=== PATIENT | male | born 1935 | race Asian ===

== ENCOUNTER 2017-01-15 18:59 | Inpatient (IN) | payer OTHER ==
[~2017-01-15] VITALS: Ht 160 cm; Wt 61.2 kg
[2017-01-15 20:00] VITALS: BP 133/64
[2017-01-15] MEDS ORDERED: Solu-MEDROL 125mg Inj IVP ONE (20:30)
[2017-01-15] MEDS ORDERED: Azithromycin 500 MG in NS 275 ML IV ONE (20:30)
[2017-01-15] MEDS: Ipratropium 0.02% Inh Soln 2.5ml UD HHN SCH ×3 (20:51→21:39)
[2017-01-15] MEDS: Albuterol ud Inhalation HHN SCH ×3 (20:51→21:39)
--- NOTE | 2017-01-15 20:54 | Emergency Room Report ---
History of Present Illness General Chief Complaint: Dyspnea/Respdistress Source: Patient Present Illness HPI 81 YOM with COPD with worsening SOB last day, no improvement with home nebs. Not on chronic steroids. On ProAir, Atrovent. No recent fever/chills, increase sputum/cough production. No recent hospitalizations. Allergies: Coded Allergies: PARVIN INHIBITORS (Verified Allergy, Mild, 09/13/09) Patient History Past Medical History: HTN, COPD Past Surgical History: none Pertinent Family History: none Social History: Denies: alcohol use, drug use, smoking Immunizations: UTD Reviewed Nursing Documentation: PMH: Agreed, PSxH: Agreed Nursing Documentation-PMH Hx COPD: Yes Review of Systems All Other Systems: negative except mentioned in HPI Physical Exam Vital Signs Date Time Temp Pulse Resp B/P Pulse Ox O2 Delivery O2 Flow Rate FiO2 01/15/17 18:54 100.9 111 24 186/106 99 Room Air Sp02 EP Interpretation: reviewed, abnormal General Appearance: normal inspection, well appearing, no apparent distress, alert, GCS 15, non-toxic Head: normocephalic, atraumatic Eyes: bilateral eye EOMI, bilateral eye PERRL ENT: normal ENT inspection, hearing grossly normal, normal voice Neck: normal inspection, full range of motion, supple, no bony tend Respiratory: normal inspection, lungs clear, normal breath sounds, no respiratory distress, no retraction, no wheezing, decreased breath sounds, accessory muscle use, speaking full sentences, wheezing, other - Accessory muscle use Cardiovascular #1: regular rate, rhythm, no edema Gastrointestinal: normal inspection, normal bowel sounds, non tender, soft, no guarding, no hernia Genitourinary: no CVA tenderness Musculoskeletal: normal inspection, back normal, normal range of motion, Mony' s Sign negative Neurologic: normal inspection, alert, oriented x3, 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 I attest that this information is true, accurate and complete to the best of my knowledge. I understand that any falsification, omission, or concealment of material fact may subject me to administrative, civil, or criminal liability. This patient warrants hospital admission for extreme of age and has a condition that cannot be treated as outpatient. Diagnostic Impression: Primary Impression: Dyspnea Qualified Codes: R06.00 - Dyspnea, unspecified Additional Impression: COPD exacerbation ER Course 81 YO M with fever, COPD exac. Low grade fever. Otherwise stable VS. CXR: No obvious PNA Labs: 18k. Given Azitrho/Rocephin, Tylenol Blood Cx pending Feels better after duonebs. Endorsed to Dr Velasco at 1002pm for tele admission Chest X-Ray Diagnostic Results EP Interpretation: Yes Findings: no consolidation, no effusion, no pneumothorax, no acute cardiopulmonary disease Number of Views: 1 Last Vital Signs Date Time Temp Pulse Resp B/P Pulse Ox O2 Delivery O2 Flow Rate FiO2 01/15/17 18:54 100.9 111 24 186/106 99 Room Air Status: unchanged Disposition: ADMITTED INPATIENT Condition: Serious [facility] ABRAHAM BROWN M.D. Jan 15, 2017 20:54
[2017-01-15 20:58] LABS: MEAN CORPUSCULAR VOLUME 96 FL (80-99); RED BLOOD COUNT 5.13 M/UL (4.70-6.10); WHITE BLOOD COUNT 18.8 K/UL (4.8-10.8)
[2017-01-15 20:59] LABS: MEAN CORPUSCULAR HGB CONC 32.6 G/DL (32.0-36.0); MEAN PLATELET VOLUME 6.1 FL (6.5-10.1); PLATELET COUNT 194 K/UL (150-450); RED CELL DISTRIBUTION WIDTH 14.6 % (11.6-14.8)
[2017-01-15] MEDS ORDERED: Azithromycin Inj IV ONE (21:09)
[2017-01-15 21:10] LABS: TROPONIN I < 0.30 ng/mL (<=0.30)
[2017-01-15 21:16] LABS: CKMB 6.6 ng/mL (< 6.7)
[2017-01-15 21:25] LABS: ALANINE AMINOTRANSFERASE 37 U/L (3-41); ALBUMIN/GLOBULIN RATIO 1.3 (1.0-2.7); ANION GAP 17 (5-15); ASPARTATE AMINO TRANSFERASE 29 U/L (5-40); CALCIUM 9.3 mg/dL (8.6-10.2); CARBON DIOXIDE 27 mEQ/L (20-30); CHLORIDE 94 mEQ/L (98-107); CREATININE 0.9 mg/dL (0.7-1.2); HEMOLYSIS 12; POTASSIUM 3.8 mEQ/L (3.4-4.9); SODIUM 138 mEQ/L (135-145); TOTAL PROTEIN 7.6 g/dL (6.6-8.7)
[2017-01-15 21:37] LABS: BAND NEUTROPHILS % (MANUAL) 12 % (0-8); LYMPHOCYTES % (MANUAL) 1 % (20-45); NEUTROPHILS % (MANUAL) 86 % (45-75); TOTAL CELLS COUNTED 100
[2017-01-15 21:38] LABS: BASOPHILS % (MANUAL) 0 % (0-2); EOSINOPHILS % (MANUAL) 0 % (0-3); PLATELET ESTIMATE ADEQUATE
[2017-01-15 21:44] LABS: PLATELET MORPHOLOGY NORMAL
[2017-01-15] MEDS ORDERED: cefTRIAXone 1 GM in NS 55 ML IVPB ONE (21:45)
[2017-01-15 22:30] VITALS: BP 111/57
[2017-01-16] VITALS: BP 108/67
[2017-01-16 04:00] VITALS: BP 107/67
[2017-01-16] MEDS: DuoNeb 0.5-3(2.5)mg/3ml neb HHN SCH ×4 (07:51→19:27)
[2017-01-16] MEDS: Solu-MEDROL 40mg Inj IVP SCH ×2 (08:28→20:52)
[2017-01-16 08:31] VITALS: BP 111/73
[2017-01-16 11:42] VITALS: BP 121/78
--- NOTE | 2017-01-16 13:31 | Diagnostic Imaging Report ---
Indication: SOB Technique: One view of the chest Comparison: None Findings: There is Some atelectasis at the left lateral lung base. There may be a small left pleural effusion. There is minimal right lateral basilar atelectasis. Lungs and pleural spaces otherwise clear. Heart size is normal. Impression: Minimal bilateral basilar atelectatic changes and possible minimal left pleural effusion
[2017-01-16 16:20] VITALS: BP 124/81
--- NOTE | 2017-01-16 19:10 | History & Physical ---
History and Physical History & Physicial dict RAMANATHINARDA Jan 16, 2017 19:09
[2017-01-16 20:00] VITALS: BP 124/71
[2017-01-16] MEDS ORDERED: cefTRIAXone 1 GM in D5W 55 ML IVPB SCH (21:00)
[2017-01-16] MEDS ORDERED: Azithromycin 250mg tab ORAL SCH (21:00)
[2017-01-16 21:21] LABS: APPEARANCE,URINE CLEAR; KETONES,URINE NEGATIVE (NEGATIVE); LEUKOCYTE ESTERASE ,URINE NEGATIVE (NEGATIVE); NITRITE,URINE NEGATIVE (NEGATIVE); PH,URINE 5 (4.5-8.0); PROTEIN,URINE 2+ (NEGATIVE); UROBILINOGEN,URINE NORMAL MG/DL (0.0-1.0)
[2017-01-16 21:53] LABS: BACTERIA,URINE MODERATE /HPF
[2017-01-17] VITALS: BP 116/67
--- NOTE | 2017-01-17 02:18 | History and Physical Report ---
DATE OF ADMISSION: 01/15/2017 HISTORY OF PRESENT ILLNESS: The patient is a very pleasant 81-year-old man who comes to the hospital because of shortness of breath for one day. He has severe emphysema, and has been seen and treated in urgent care in the past several weeks. He states that he has home oxygen and a home nebulizer, but he does not need it much. He came in severely short of breath and came to the emergency department. He was treated with bronchodilators, steroids, and antibiotics. His white count is elevated. Admission was arranged. Now he is anxious to leave the hospital. He states he is feeling better. ALLERGIES: PARVIN inhibitor, grass, and pollen. PAST MEDICAL HISTORY: 1. BPH. 2. Rhinitis. 3. Bronchiectasis. 4. Chronic obstructive pulmonary disease. 5. Fatty liver. 6. Gout. 7. Hepatitis. 8. Past heavy smoker. 9. Hypertension. 10. Macular degeneration. 11. Microscopic hematuria. 12. Osteoarthritis. 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 14. Tubular adenoma. SOCIAL HISTORY: He lives with his . He does not smoke any longer as noted. MEDICATIONS: Include, 1. Allopurinol. 2. Proscar. 3. Norvasc. 4. Advair. 5. Claritin. 6. Flonase. 7. Astelin. 8. ProAir. 9. EpiPen. 10. Flomax. REVIEW OF SYSTEMS: Otherwise unremarkable. He denies hemoptysis or chest pain. He has no cardiac problems. He has no ankle edema. He eats well. He does not have difficulty urinating. PHYSICAL EXAMINATION: GENERAL: The patient is alert and responds appropriately. He is standing up at the bedside with mild dyspnea. VITAL SIGNS: The blood pressure and pulse are normal. Respirations are mildly elevated at 28. His temperature was elevated on admission at 100.9 degrees, but has improved at this time. SKIN: Warm and dry. HEENT: The head is normocephalic. NECK: No jugular venous distention. CHEST: Decreased air entry with increased AP diameter. CARDIAC: Rhythm is regular. ABDOMEN: Soft and nontender. EXTREMITIES: No edema. DIAGNOSTIC DATA: Chest x-ray is clear. I note that there is no indication of situs inversus on the x-ray. LABORATORY DATA: Showed white count is 18,800; hemoglobin is 15.9; and platelets are normal. There is a left shift. Chemistry shows blood sugar 160. Troponin is negative. Electrolytes are otherwise normal. Renal function is normal. Urinalysis is pending. IMPRESSION: 1. Exacerbation of chronic obstructive pulmonary disease. 2. Fever and leukocytosis, possible influenza or early pneumonia, possible urinary tract infection. Urinalysis pending. 3. Hypertension. 4. Benign prostatic hypertrophy. 5. Bronchiectasis. PLAN: The patient will continue on steroids, antibiotics, bronchodilators, and oxygen. I advised him that if he wants to leave this evening, he will have to go against my advice. I anticipate 1 to 2 days more in the hospital. Abraham Velasco M.D. DR: MARJAN JOB#: [id number] CC: Abraham Velasco M.D.; Fax#: [phone]
[2017-01-17 04:02] LABS: MEAN CORPUSCULAR HEMOGLOBIN 30.8 PG (27.0-31.0); MEAN CORPUSCULAR HGB CONC 32.6 G/DL (32.0-36.0); MEAN CORPUSCULAR VOLUME 94 FL (80-99); PLATELET COUNT 181 K/UL (150-450); RED BLOOD COUNT 4.28 M/UL (4.70-6.10); RED CELL DISTRIBUTION WIDTH 14.2 % (11.6-14.8); WHITE BLOOD COUNT 19.5 K/UL (4.8-10.8)
[2017-01-17 04:15] VITALS: BP 113/75
[2017-01-17 04:29] LABS: ALANINE AMINOTRANSFERASE 24 U/L (3-41); ALBUMIN/GLOBULIN RATIO 1.1 (1.0-2.7); ANION GAP 12 (5-15); ASPARTATE AMINO TRANSFERASE 18 U/L (5-40); CALCIUM 9.2 mg/dL (8.6-10.2); CARBON DIOXIDE 27 mEQ/L (20-30); CHLORIDE 103 mEQ/L (98-107); CREATININE 0.9 mg/dL (0.7-1.2); HEMOLYSIS 1; POTASSIUM 4.5 mEQ/L (3.4-4.9); SODIUM 142 mEQ/L (135-145); TOTAL PROTEIN 6.1 g/dL (6.6-8.7)
[2017-01-17 07:11] LABS: BAND NEUTROPHILS % (MANUAL) 0 % (0-8); BASOPHILS % (MANUAL) 0 % (0-2); EOSINOPHILS % (MANUAL) 0 % (0-3); LYMPHOCYTES % (MANUAL) 5 % (20-45); NEUTROPHILS % (MANUAL) 94 % (45-75); PLATELET ESTIMATE ADEQUATE; PLATELET MORPHOLOGY NORMAL; TOTAL CELLS COUNTED 100
[2017-01-17] MEDS: DuoNeb 0.5-3(2.5)mg/3ml neb HHN SCH ×3 (07:25→14:52)
[2017-01-17 08:35] VITALS: BP 116/77
[2017-01-17] MEDS: Solu-MEDROL 40mg Inj IVP SCH (09:27)
[2017-01-17 11:34] VITALS: BP 118/72
--- NOTE | 2017-01-17 15:12 | Cardiology Report ---
APPROVED REPORT EKG Measurement Heart [id number] arm lead reversal Sinus tachycardia Septal infarct, age undetermined Inferior infarct, age undetermined Abnormal ECG
[2017-01-17 16:00] VITALS: BP 131/76
[2017-01-17] MEDS ORDERED: SYMBICORT 16010.2 G1 IH (16:32)
[2017-01-17] MEDS ORDERED: MEDROL4 M1 PO (16:32)
[2017-01-17] MEDS ORDERED: ZITHROMAX250 MG ORAL (16:32)
--- NOTE | 2017-01-17 16:34 | Discharge Summary ---
Discharge Summary Hospital Course Date of Admission Jan 15, 2017 at 21:46 Date of Discharge 01/17/17 Admitting Diagnosis COPD exacerbation HPI Kwesi Salgado is a 81 year old male who was admitted on Jan 15, 2017 at 21:46 for Chronic Obstructive Pulmonary Disease Consultations no Procedures no Hospital Course improved w abx, steroids, hhn no infection identified Discharge Medications New Medications: Budesonide/Formoterol Fumarate (Symbicort 160-4.5 Mcg Inhaler) 10.2 Gm Hfa.aer.ad 2 PUFF IH BID, #1 INH 0 Refills Methylprednisolone (Medrol) 4 Mg Tab.ds.pk 4 MG PO BID, #20 PACK Azithromycin* (Zithromax*) 250 Mg Tablet 250 MG ORAL DAILY@2100 for 5 Days, #5 TAB Discharge Discharge Disposition Patient was discharged to home Discharge Diagnoses: (1) COPD exacerbation NARDA VALIENTE Jan 17, 2017 16:34
== END 2017-01-17 18:36 | disposition home or self-care (01) | DRG 190 ==
LOC: EDBD 18:59 → EMR 20:33 → 2E 21:46 → EDBEDREQ 22:36
DX: J44.1 Chronic obstructive pulmonary disease with (acute) exacerbation (principal); J18.9 Pneumonia, unspecified organism; N39.0 Urinary tract infection, site not specified; I10 Essential (primary) hypertension; N40.0 Benign prostatic hyperplasia without lower urinary tract symptoms; Z88.8 Allergy status to other drugs, medicaments and biological substances; M19.90 Unspecified osteoarthritis, unspecified site; M10.9 Gout, unspecified; Z87.891 Personal history of nicotine dependence
CPT/HCPCS: 36415; 71010; 80053; 81001; 82550; 82553; 84484; 85007; 85025; 86710; 87086; 93005; 94640; 94664; 94760; J7620

== ENCOUNTER 2017-07-03 12:52 | Outpatient (RCR) | payer OTHER ==
[~2017-07-03 12:52] MED LIST: MEDROL4 M1 PO; SYMBICORT 16010.2 G1 IH; ZITHROMAX250 MG ORAL
== END 2017-07-04 | disposition home or self-care (01) ==
LOC: PTY 12:52
PROVIDERS: ATTEND Internal Medicine
DX: M50.30 Other cervical disc degeneration, unspecified cervical region (principal)
CPT/HCPCS: 97110; 97140; 97162; 97535; G0283

== ENCOUNTER 2017-07-10 18:43 | Emergency (ER) | payer OTHER ==
[~2017-07-10] VITALS: Ht 157.5 cm; Wt 65.8 kg
[2017-07-10 19:00] VITALS: BP 157/84
[2017-07-10] MEDS ORDERED: ALLOPURINOL100 M1 ORAL (19:02)
[2017-07-10] MEDS ORDERED: PROAIR HFA8.5 GM INH (19:02)
[2017-07-10] MEDS ORDERED: IPRATROPIU0.2 MG/1 M HHN (19:02)
[2017-07-10] MEDS ORDERED: STIOLTO RESPIMAT4 GM IH (19:02)
[2017-07-10] MEDS ORDERED: FINASTERIDE5 MG ORAL (19:02)
[2017-07-10] MEDS ORDERED: TAMSULOSIN HCL0.4 MG ORAL (19:02)
[2017-07-10 19:20] VITALS: BP 157/84
--- NOTE | 2017-07-10 19:41 | Emergency Room Report ---
History of Present Illness General Chief Complaint: Dyspnea/Respdistress Source: Patient, Medical Record Present Illness HPI This patient has a history of severe COPD. He is on home oxygen. He states that for the past week he has had worsening dyspnea. He states that he is also had cough. He states he can only walk a few feet and becomes severely short of breath. He states his symptoms are severe. He also has had congestion and mucus. 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 He denies fever or chills. Denies nausea or vomiting. Denies abdominal pain. He has no other complaints. Allergies: Coded Allergies: PARVIN INHIBITORS (Verified Allergy, Mild, 09/13/09) GRASS POLLEN (Unverified Allergy, Unknown, 01/16/17) NUT - UNSPECIFIED (Unverified Allergy, Unknown, 01/16/17) WHEAT (Unverified Allergy, Unknown, 01/16/17) Patient History Past Medical History: see triage record, COPD Social History: Denies: smoking, alcohol use, drug use Reviewed Nursing Documentation: PMH: Agreed, PSxH: Agreed Nursing Documentation-PMH Hx COPD: Yes - Emphysema Review of Systems All Other Systems: negative except mentioned in HPI Physical Exam Vital Signs Date Time Temp Pulse Resp B/P (MAP) Pulse Ox O2 Delivery O2 Flow Rate FiO2 07/10/17 18:50 99.0 97 25 157/109 93 Room Air 2.0 Sp02 EP Interpretation: reviewed, abnormal General Appearance: no apparent distress, alert, GCS 15, non-toxic Head: normocephalic, atraumatic Eyes: bilateral eye normal inspection, bilateral eye PERRL ENT: hearing grossly normal, normal pharynx, no angioedema, normal voice Neck: full range of motion, supple/symm/no masses Respiratory: chest non-tender, lungs clear, normal breath sounds, no respiratory distress, no retraction, speaking full sentences, expiration - prolonged Cardiovascular #1: regular rate, rhythm, no edema Gastrointestinal: normal bowel sounds, non tender, soft, non-distended, no guarding, no rebound Rectal: deferred Musculoskeletal: back normal, gait/station normal, normal range of motion, non- tender Neurologic: alert, oriented x3, responsive, motor strength/tone normal, sensory intact, speech normal Psychiatric: judgement/insight normal, memory normal, mood/affect normal, no suicidal/homicidal ideation Skin: normal color, no rash, warm/dry, well hydrated Medical Decision Making Diagnostic Impression: Primary Impression: COPD exacerbation ER Course This patient has a clinical presentation consistent with COPD exacerbation. Patient has a history of severe COPD and has prolonged expiration and pursed lip breathing on physical exam. The patient was given albuterol and Atrovent nebulizer treatments. The patient was also given prednisone orally. The patient had significant improvement in subjective shortness of breath. The patient's lung exam improved significantly. I will also treat the patient with a course of antibiotics as this has been shown to improve the course of an COPD exacerbation. The patient was offered admission to the hospital. However he adamantly declined. The patient states he does not want to be in hospitals. He was offered to return if he changes his mind. The patient was given close return precautions and followup instructions. Laboratory Tests Test 07/10/17 20:00 White Blood Count 10.6 K/UL (4.8-10.8) Red Blood Count 4.17 M/UL (4.70-6.10) L Hemoglobin 13.6 G/DL (14.2-18.0) L Hematocrit 39.8 % (42.0-52.0) L Mean Corpuscular Volume 96 FL (80-99) Mean Corpuscular Hemoglobin 32.6 PG (27.0-31.0) H Mean Corpuscular Hemoglobin Concent 34.1 G/DL (32.0-36.0) Red Cell Distribution Width 13.0 % (11.6-14.8) Platelet Count 213 K/UL (150-450) Mean Platelet Volume 6.2 FL (6.5-10.1) L Neutrophils (%) (Auto) 83.4 % (45.0-75.0) H Lymphocytes (%) (Auto) 6.7 % (20.0-45.0) L Monocytes (%) (Auto) 8.1 % (1.0-10.0) Eosinophils (%) (Auto) 0.5 % (0.0-3.0) Basophils (%) (Auto) 1.4 % (0.0-2.0) Prothrombin Time 10.0 SEC (9.30-11.50) Prothrombin Time INR 1.0 (0.9-1.1) PTT 27 SEC (23-33) Sodium Level 140 mEQ/L (135-145) Potassium Level 4.1 mEQ/L (3.4-4.9) Chloride Level 100 mEQ/L (98-107) Carbon Dioxide Level 29 mEQ/L (20-30) Anion Gap 11 (5-15) Blood Urea Nitrogen 14 mg/dL (7-23) Creatinine 0.8 mg/dL (0.7-1.2) Estimate Glomerular Filtration Rate mL/min (>60) Glucose Level 125 mg/dL (74-106) H Calcium Level 9.5 mg/dL (8.6-10.2) Total Bilirubin 0.6 mg/dL (0.0-1.2) Aspartate Amino Transferase (AST) 68 U/L (5-40) H Alanine Aminotransferase (ALT) 148 U/L (3-41) H Alkaline Phosphatase 121 U/L (40-129) Total Creatine Kinase 295 U/L (38-174) H Creatine Kinase MB 11.8 ng/mL (< 6.7) H Creatine Kinase MB Relative Index 4.0 Troponin I < 0.30 ng/mL (<=0.30) Pro-B-Type Natriuretic Peptide 81 pg/mL (0-450) Total Protein 7.6 g/dL (6.6-8.7) Albumin 3.8 g/dL (3.5-5.2) Globulin 3.8 g/dL Albumin/Globulin Ratio 1.0 (1.0-2.7) EKG Diagnostic Results Rate: normal Rhythm: NSR ST Segments: no acute changes Rhythm Strip Diag. Results EP Interpretation: yes Rate: 80's Rhythm: NSR, no PVC's, no ectopy Chest X-Ray Diagnostic Results Chest X-Ray Diagnostic Results : Chest X-Ray Ordered: Yes # of Views/Limited/Complete: 1 View Indication: Shortness of Breath EP Interpretation: Yes Interpretation: no consolidation, no effusion, no pneumothorax, no acute cardiopulmonary disease Impression: No acute disease Last Vital Signs Date Time Temp Pulse Resp B/P (MAP) Pulse Ox O2 Delivery O2 Flow Rate FiO2 07/10/17 19:20 99.0 86 22 157/84 97 Nasal Cannula 2.0 Disposition: HOME, SELF-CARE Condition: Improved Referrals: BARRIE SOLOMON MD (PCP) Patient Instructions: Chronic Obstructive Pulmonary Disease Exacerbation LEO GRIFFITH D.O. Jul 10, 2017 19:41
[2017-07-10] MEDS ORDERED: Azithromycin 500 MG in NS 275 ML IV ONE (19:45)
[2017-07-10] MEDS ORDERED: PredniSONE 20mg tab ORAL ONE (19:45)
[2017-07-10] MEDS ORDERED: Ipratropium 0.02% Inh Soln 2.5ml UD HHN ONE (19:45)
[2017-07-10] MEDS ORDERED: Albuterol ud Inhalation HHN ONE (19:45)
[2017-07-10] MEDS ORDERED: Azithromycin 500mg Inj IV ONE (20:05)
[2017-07-10 20:07] LABS: BASOPHILS % (AUTO) 1.4 % (0.0-2.0); EOSINOPHILS % (AUTO) 0.5 % (0.0-3.0); LYMPHOCYTES % (AUTO) 6.7 % (20.0-45.0); MEAN CORPUSCULAR HEMOGLOBIN 32.6 PG (27.0-31.0); MEAN CORPUSCULAR HGB CONC 34.1 G/DL (32.0-36.0); MEAN CORPUSCULAR VOLUME 96 FL (80-99); MEAN PLATELET VOLUME 6.2 FL (6.5-10.1); MONOCYTES % (AUTO) 8.1 % (1.0-10.0); NEUTROPHILS % (AUTO) 83.4 % (45.0-75.0); PLATELET COUNT 213 K/UL (150-450); RED BLOOD COUNT 4.17 M/UL (4.70-6.10); WHITE BLOOD COUNT 10.6 K/UL (4.8-10.8)
[2017-07-10 20:32] LABS: TROPONIN I < 0.30 ng/mL (<=0.30)
[2017-07-10 20:35] LABS: ALANINE AMINOTRANSFERASE 148 U/L (3-41); ANION GAP 11 (5-15); ASPARTATE AMINO TRANSFERASE 68 U/L (5-40); CALCIUM 9.5 mg/dL (8.6-10.2); CARBON DIOXIDE 29 mEQ/L (20-30); CHLORIDE 100 mEQ/L (98-107); CREATININE 0.8 mg/dL (0.7-1.2); HEMOLYSIS 1; POTASSIUM 4.1 mEQ/L (3.4-4.9); SODIUM 140 mEQ/L (135-145); TOTAL PROTEIN 7.6 g/dL (6.6-8.7)
[2017-07-10 20:46] LABS: CKMB 11.8 ng/mL (< 6.7)
[2017-07-10] MEDS ORDERED: PSEUDOEPHEDRINE30 MG PO (21:50)
[2017-07-10] MEDS ORDERED: ZITHROMAX250 MG ORAL (21:50)
[2017-07-10] MEDS ORDERED: PREDNISONE20 MG ORAL (21:50)
[2017-07-10] MEDS ORDERED: MUCINEX100 MG PO (21:50)
[2017-07-10 22:23] VITALS: BP 165/85
--- NOTE | 2017-07-11 11:30 | Diagnostic Imaging Report ---
Indication: SOB Technique: One view of the chest Comparison: 01/15/2017 Findings: The heart is enlarged. The lungs appear somewhat hyperinflated. Atelectasis or scarring is seen at both lung bases. The aorta is tortuous. No definite infiltrates, effusions, congestion Impression: No acute process Cardiomegaly Suspect COPD changes
--- NOTE | 2017-07-15 18:51 | Cardiology Report ---
APPROVED REPORT EKG Measurement Heart [id number] Normal sinus rhythm Normal ECG
== END 2017-07-10 22:10 | disposition home or self-care (01) ==
LOC: EMR 19:16
DX: J44.1 Chronic obstructive pulmonary disease with (acute) exacerbation (principal); Z88.8 Allergy status to other drugs, medicaments and biological substances; Z91.018 Allergy to other foods
CPT/HCPCS: 36415; 71010; 80053; 82550; 82553; 83880; 84484; 85025; 85610; 85730; 93005; 96365; 99284; J0456; J7050

== ENCOUNTER 2017-07-29 14:30 | Outpatient (RCR) | payer OTHER ==
[~2017-07-29 14:30] MED LIST changes: +ALLOPURINOL100 M1 ORAL; +FINASTERIDE5 MG ORAL; +IPRATROPIU0.2 MG/1 M HHN; +MUCINEX100 MG PO; +PREDNISONE20 MG ORAL; +PROAIR HFA8.5 GM INH; +PSEUDOEPHEDRINE30 MG PO; +STIOLTO RESPIMAT4 GM IH; +TAMSULOSIN HCL0.4 MG ORAL
== END 2017-08-03 | disposition home or self-care (01) ==
LOC: PTY 14:30
PROVIDERS: ATTEND Internal Medicine
DX: M50.30 Other cervical disc degeneration, unspecified cervical region (principal); I10 Essential (primary) hypertension; M13.88 Other specified arthritis, other site
CPT/HCPCS: 97035; 97110; 97140; G0283

== ENCOUNTER 2017-08-26 10:29 | Outpatient (RCR) | payer OTHER | END 2017-09-03 | disposition home or self-care (01) | LOC: PTY 10:29 | PROVIDERS: ATTEND Internal Medicine | DX: M50.30 Other cervical disc degeneration, unspecified cervical region (principal) | CPT/HCPCS: 97110; 97140; G0283 ==

== ENCOUNTER 2017-09-25 09:45 | Outpatient (RCR) | payer OTHER | END 2017-10-03 | disposition home or self-care (01) | LOC: PTY 09:45 | PROVIDERS: ATTEND Internal Medicine | DX: M50.30 Other cervical disc degeneration, unspecified cervical region (principal); G89.29 Other chronic pain; M54.2 Cervicalgia; I10 Essential (primary) hypertension; M19.90 Unspecified osteoarthritis, unspecified site | CPT/HCPCS: 97110; 97140; G0283 ==

== ENCOUNTER 2017-11-12 10:30 | Outpatient (RCR) | payer OTHER | END 2017-12-04 | disposition home or self-care (01) | LOC: PTY 10:30 | PROVIDERS: ATTEND Internal Medicine | DX: M50.30 Other cervical disc degeneration, unspecified cervical region (principal); G89.29 Other chronic pain | CPT/HCPCS: 97110; 97140; G0283 ==